=== PATIENT | male | born 1995 | race Hispanic/Latino ===

== ENCOUNTER 2016-06-21 14:18 | Emergency (ER) | payer OTHER ==
[~2016-06-21] VITALS: Ht 170.2 cm; Wt 75.7 kg
[2016-06-21] MEDS ORDERED: ACETAMINOPHEN 325 MG TAB As Ordered ONE (14:57)
[2016-06-21] MEDS ORDERED: ACETAMINOPHEN 325 MG TAB PO ONE (15:15)
--- NOTE | 2016-06-21 15:25 | REP ---
Chest two views HISTORY: Shortness of breath Comparison: None The lungs are clear. The heart is normal in size. The pulmonary vasculature is normal in appearance. The bony structure is intact. IMPRESSION: No acute disease. Signed by Dalton Vieira MD 06/21/2016 03:16 P
[2016-06-21] MEDS ORDERED: KEFL500C7 PO (15:50)
[2016-06-21] MEDS ORDERED: IBUP80TA PO (15:50)
[2016-06-21 16:17] VITALS: BP 100/48
== END 2016-06-21 16:19 | disposition home or self-care (01) ==
LOC: EDBD 14:18 → M ED 14:18
DX: R50.9 Fever, unspecified (principal)